=== PATIENT | male | born 2000 | race Caucasian/White ===

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

== ENCOUNTER → 2020-02-12 17:11 | Outpatient (CLI) | payer OTHER, SELFPAY ==
[2020-02-12 18:56] LABS: Basophils # 0.1 K/mm3 (0-0.2); Basophils % 2.1 % (0.1-2.0); Eosinophils % 0.5 % (0.1-12.0); Hematocrit 44.7 % (42.0-52.0); Hemoglobin 15.1 g/dL (14.1-18.0); Lymphocytes # 0.8 K/mm3 (0.7-4.5); Lymphocytes % 12.5 % (10-50); Mean Corpuscular HGB Conc 33.7 g/dL (31.8-35.4); Mean Corpuscular Hemoglobin 30.5 pg (27.0-31.2); Mean Corpuscular Volume 90.6 fl (80-94); Monocytes # 0.7 K/mm3 (0.1-1.0); Monocytes % 12.2 % (1.7-9.3); Neutrophils # 4.4 K/mm3 (1.8-7.8); Neutrophils % 72.7 % (37.0-80.0); Platelet Count 235 K/mm3 (142-424); Red Blood Count 4.94 M/mm3 (4.60-6.20); Red Cell Distribution Width 13.1 % (11.5-17.5)
== END ==
PROVIDERS: PCP Family Medicine; Visit Provider Family Medicine
DX: Z20.828 Contact with and (suspected) exposure to other viral communicable diseases (principal); U07.1 COVID-19
CPT/HCPCS: 36415; 85025; 87275; 87276; U0003

== ENCOUNTER 2020-09-15 17:36 | Emergency (ER) | payer OTHER, SELFPAY ==
[2020-09-15 18:44] VITALS: BP 165/99; PULSE 110; RESP 20; TEMP 36.9; O2SAT 98; BMI 39.8
--- NOTE | 2020-09-15 19:18 | HMH.EDUTC ---
[facility] Disposition Clinical Impression: Conjunctivitis, right eye Qualifiers: Conjunctivitis type: unspecified Qualified Code(s): H10.9 - Unspecified conjunctivitis Disposition: Home, Self-Care Condition on Discharge: Good Instructions: How to Instill Eye Drops, DI for Conjunctivitis Additional Instructions: Use the eye drops as directed. Strict hand washing in the house hold, because conjunctivitis is very contagious. Follow up with your regular doctor. GO TO THE ER FOR ANY WORSENING SYMPTOMS OR CONCERNS Follow up with your eye doctor as discussed. If you have worsening symptoms, please return and go through the ER. Prescriptions: Ibuprofen [Ibuprofen 800mg Tablet] 800 mg PO Q8HP PRN #30 tab PRN Reason: Moderate Pain Transmission Status: Received by [facility] Moxifloxacin HCl [Vigamox] 1 drp EYE-RIGHT TID 7 Days #1 bottle Transmission Status: Received by [facility] Referrals: Lavell Anaya MD [Primary Care Provider] - Forms: Work/School Release Time of Disposition: 19:47 Medical Decision Making - Medical Records Medical records reviewed: No: I reviewed the patient's medical records. - Juan Pablo Inquiry Pt receiving controlled substance: No Vital Signs: 09/15/20 18:44 09/15/20 19:51 Temperature 98.5 F 98.5 F Temperature Source Oral Pulse Rate 113 H Pulse Rate [Left] 110 H Respiratory Rate 20 18 Blood Pressure 161/99 H Blood Pressure [Right Arm] 165/99 H Blood Pressure Mean [Right Arm] 121 02 Sat by Pulse Oximetry 98 Medical Decision Narrative: He adamantly refused eye exam under wood's lamp with dye. [facility] HPI - General Stated complaint: r eye irritated Time Seen by Provider: 09/15/20 19:18 Mode of Arrival: Ambulatory Source of Information: Patient Limitations: No Limitations Description of Symptoms (Recalled from Triage Doc. by RN): pt states he scratched his R eye at work about three days ago. pt now is having purulent drainage. HEENT Symptoms (Recalled from RN notes): Yes (R eye irriatation and purulent drainage) Resp Symptoms (Recalled from RN notes): No Skin Symptoms (Recalled from RN notes): No MS Symptoms (Recalled from RN notes): No Functional Status (Recalled from RN notes): na - History of Present Illness Provider Complaint: He states that for the past 3 days he has had right eye irration. He assumed it was his allergies acting up, so he has been taking allergy medication and using an otc allergy eye drop in the eye. He states that today at work his coworker accidentily brushed across his face and right eye with some stickers or paper. He states that after that he began having worse eye irritation and redness. He denies that his vision has changed any. He denies eye pain, other than the irritated feeling and the feeling that bright lights make it more sensitive. - Related Data Previous Rx's Medication Instructions Recorded Azithromycin [Z-Sebas 250mg Tab*] 250 mg PO UD DOSE PK #6 tab 02/12/19 Fluticasone Propionate [Flonase 1 - 2 spr NS DAILY #1 bottle 02/12/19 50mcg nasal spray 16gm] methylPREDNISolone [Medrol 4mg 4 mg PO DIRECTED #21 tab 02/12/19 tab] Ibuprofen [Ibuprofen 800mg 800 mg PO Q8HP PRN #30 tab 09/15/20 Tablet] Moxifloxacin HCl [Vigamox] 1 drp EYE-RIGHT TID 7 Days #1 09/15/20 bottle Allergies Allergy/AdvReac Type Severity Reaction Status Date / Time Penicillins Allergy Verified 09/15/20 18:47 Sulfa (Sulfonamide Allergy Verified 09/15/20 18:47 Antibiotics) - Worker's Comp Is this a Worker's Comp case?: No [facility] History - Hepatitis A Screen Drug use history?: No High risk sexual behaviors?: No History of sexually transmitted infection?: No Currently employed?: No Childcare worker?: No Do you have indoor plumbing?: Yes Do you have electricity?: Yes Attestation statement:: This patient has been screened for Hepatitis A risk factors. I have revie
[2020-09-15 19:51] VITALS: BP 161/99; PULSE 113; RESP 18; TEMP 36.9
== END 2020-09-15 19:51 | disposition home or self-care (01) ==
PROVIDERS: Emergency Provider Nurse Practitioner Family; PCP Family Medicine
DX: H10.9 Unspecified conjunctivitis (principal)
CPT/HCPCS: 99202; G0463

== ENCOUNTER 2021-04-19 14:24 | Emergency (ER) | payer SELFPAY ==
[2021-04-19 14:26] VITALS: BP 123/66; PULSE 108; RESP 16; TEMP 37.4; O2SAT 98; BMI 33.9
[2021-04-19 14:47] LABS: Microscopic, Urine URINE MICROSCOPIC (MICROSCOPIC)
--- NOTE | 2021-04-19 14:50 | HMH.EDGENADL ---
ED Disposition Clinical Impression: Epigastric pain Disposition: Home, Self-Care Condition on Discharge: Good Referrals: Lavell nAaya MD [Primary Care Provider] - - Critical Care Critical Care Time: No Attestation: On , the high probability of a clinically significant, sudden or life threatening deterioration of the following system(s) required my full and direct attention, intervention and personal management. The time I documented below is in addition to time spent performing reported procedures but includes the following listed in this critical care notation. Medical Decision Making - Juan Pablo Inquiry Pt receiving controlled substance: No - Lab Data Lab Results 04/19/21 14:40: Urine Color Yellow, Urine Appearance Clear, Urine pH 6.0, Ur Specific [place] >= 1.030, Urine Protein Negative, Urine Glucose (UA) Negative, Urine Ketones Negative, Urine Blood Negative, Urine Nitrate Negative, Urine Bilirubin Negative, Urine Urobilinogen 0.2, Ur Leukocyte Esterase Negative, Urine RBC 3-5, Urine WBC 3-5, Ur Squamous Epith Cells 3-5, Urine Bacteria Trace 04/19/21 14:40: WBC 14.4 H, RBC 5.44, Hgb 16.8, Hct 51.2, MCV 94.1 H, MCH 30.8, MCHC 32.8, RDW 13.2, Plt Count 236, MPV 8.4, Neut % (Auto) 92.7 H, Lymph % (Auto) 2.0 L, Brooke % (Auto) 3.0, Eos % (Auto) 1.2, Baso % (Auto) 1.2, Neut # (Auto) 13.3 H, Lymph # (Auto) 0.3 L, Brooke # (Auto) 0.4, Eos # (Auto) 0.2, Baso # (Auto) 0.2 04/19/21 14:40: Sodium 137, Potassium 4.5, Chloride 102, Carbon Dioxide 26, Anion Gap 13.5, BUN 23 H, Creatinine 0.80, Estimated Creat Clear 234, Estimated GFR 122, Est GFR ( Amer) 148, Glucose 95, Calcium 8.8, Total Bilirubin 0.7, AST 29, ALT 37, Alkaline Phosphatase 87, Total Protein 7.6, Albumin 4.6, Globulin 3.0, Albumin/Globulin Ratio 1.5, Lipase 66 04/19/21 14:40: Lactate 1.2 Result diagrams: 04/19/21 14:40 04/19/21 14:40 Orders (Tests/Meds): ED MEDICATIONS Generic Name Dose Route Start Last Admin Trade Name Freq PRN Reason Stop Dose Admin Lactated Ringer's 1,000 mls @ 999 mls/hr 04/19/21 14:45 04/19/21 15:14 Lactated Ringer's 1000 Ml Bag IV 04/19/21 15:45 999 mls/hr .Q1H1M DEJUAN Administration Sodium Chloride 8 ml 04/19/21 14:56 Sodium Chloride 0.9% 10ml Vial IV 05/19/21 14:55 NEEDED PRN dilute pepcid Discontinued Medications Generic Name Dose Route Start Last Admin Trade Name Freq PRN Reason Stop Dose Admin Belladonna Alkaloids 60 ml 04/19/21 14:56 04/19/21 15:14 Gi Cocktail 60ml Udc PO 04/19/21 14:57 60 ml ONCE ONE Administration Famotidine 20 mg 04/19/21 14:56 04/19/21 15:15 Famotidine 20mg/2ml Vial IV 04/19/21 14:57 20 mg ONCE ONE Administration Ondansetron HCl 4 mg 04/19/21 14:37 04/19/21 15:14 Ondansetron 4mg/2ml Vial IV 04/19/21 14:38 4 mg ONCE ONE Administration ORDERS Category Date Time Status Complete Blood Count Auto Diff Stat Lab 04/19/21 14:40 Results Medical Decision Narrative: DDx includes but not limited to gastritis, gerd, gastroenteritis, peptic ulcer, pancreatitis. HDS, NAD, well appearing, no current abd pain in ED. mildly tachycardic on initial vitals, afebrile, on room air, normotensive. will obtain labs including cbc, cmp, lipase, lactate, and will give meds including 1 liter ivf bolus lr, po gi cocktail, iv famotidine. WBC 14.4k. H/H wnl. Lipase and lactate wnl. On reassessment, tolerating PO, remains well appearing, pain free. Offered to prescribe famotidine but patient states he can get it OTC and prefers no prescription. Advised to limit fatty food and caffeinated beverages in diet. Given ED return precautions. General Adult HPI - General Stated complaint: stomach pain, vomiting Time Seen by Provider: 04/19/21 14:45 - History of Present Illness HPI narrative: 21 yo male w/ hx childhood asthma, obesity, presents for evaluation of abdominal pain. Patient reports he has had intermittent episodes of sharp or burning epigastri
[2021-04-19 15:00] VITALS: BP 175/68; PULSE 68; RESP 16; O2SAT 95
[2021-04-19 15:03] LABS: Appearance,Urine CLEAR (Clear); Bilirubin,Urine Negative (Negative); Blood, Urine Negative (Negative); Color,Urine YELLOW (Yellow); Glucose,Urine (UA) Negative (Negative); Ketones,Urine Negative (Negative); Leukocyte Esterase,Urine Negative (Negative); Nitrate,Urine Negative (Negative); Protein,Urine Negative (Negative); Specific Gravity, Urine >= 1.030 (1.005-1.030); Urobilinogen,Urine 0.2 EU/dl (0.2)
[2021-04-19 15:22] LABS: Basophils # 0.2 K/mm3 (0-0.2); Basophils % 1.2 % (0.1-2.0); Eosinophils # 0.2 K/mm3 (0.0-0.4); Eosinophils % 1.2 % (0.1-12.0); Hematocrit 51.2 % (42.0-52.0); Hemoglobin 16.8 g/dL (14.1-18.0); Lymphocytes # 0.3 K/mm3 (0.7-4.5); Mean Corpuscular HGB Conc 32.8 g/dL (31.8-35.4); Mean Corpuscular Hemoglobin 30.8 pg (27.0-31.2); Mean Corpuscular Volume 94.1 fl (80-94); Mean Platelet Volume 8.4 fl (7.4-10.4); Monocytes # 0.4 K/mm3 (0.1-1.0); Neutrophils # 13.3 K/mm3 (1.8-7.8); Neutrophils % 92.7 % (37.0-80.0); Platelet Count 236 K/mm3 (142-424); Red Blood Count 5.44 M/mm3 (4.60-6.20); Red Cell Distribution Width 13.2 % (11.5-17.5); White Blood Count 14.4 K/mm3 (4.8-10.8)
[2021-04-19 15:23] LABS: Bacteria,Urine Trace /lpf
[2021-04-19 15:26] LABS: Alanine Aminotransferase 37 U/L (12-78); Albumin Level 4.6 g/dl (3.5-5.0); Albumin/Globulin Ratio 1.5 (1.1-1.8); Alkaline Phosphatase 87 U/L (38-126); Anion Gap 13.5 mEq/L (5-15); Aspartate Amino Transferase 29 U/L (17-59); Bilirubin,Total 0.7 mg/dl (0.2-1.3); Blood Urea Nitrogen 23 mg/dl (9-20); Calcium 8.8 mg/dl (8.4-10.2); Carbon Dioxide 26 mmol/L (22.0-30.0); Chloride 102 mmol/L (98-107); Creatinine Clearance Estimated 234 mL/min (50-200); Estimated Glomerular Filt Rate 122 ml/min (>60); GFR (African American) 148 ML/MIN (>60); Glucose 95 mg/dl (74-100); Lipase 66 U/L (23-300); MANUAL DIFFERENTIAL MANUAL DIFFERENTIAL (MANUAL DIFF); Potassium 4.5 mmoL/L (3.5-5.1); Sodium 137 mmol/L (136-145); Total Protein,Serum 7.6 g/dl (6.3-8.2)
--- NOTE | 2021-04-19 15:26 | PC.NURSE ---
patient is resting in bed. awaiting test results. nothing needed at this time. call light within reach.
[2021-04-19 15:27] LABS: Lactic Acid 1.2 mmol/L (0.7-2.1)
[2021-04-19 15:30] VITALS: BP 169/72; PULSE 65; RESP 16; O2SAT 95
[2021-04-19 15:50] LABS: Anisocytosis 1+; Hypochromasia 1+; Lymphocytes % 3 % (10-50); Microcytosis 1+; Monocytes % 10 % (2-9); Neutrophils % 87 % (42-76); Tear Drop Cells 1+; Total Cells Counted 100
[2021-04-19 15:51] LABS: Platelet Estimate Normal
[2021-04-19 15:57] VITALS: BP 180/76; PULSE 65; RESP 18; TEMP 37.2; O2SAT 95
[2021-04-19 17:04] VITALS: BP 165/72; PULSE 70; RESP 16; TEMP 37.2; O2SAT 95
== END 2021-04-19 17:06 | disposition home or self-care (01) ==
PROVIDERS: Emergency Provider Student in an Organized Health Care Education/Training Program; PCP Family Medicine
DX: R10.13 Epigastric pain (principal); R11.10 Vomiting, unspecified
CPT/HCPCS: 80053; 81001; 83605; 83690; 85007; 85025; 96365; 99284; J2405

== ENCOUNTER 2021-10-16 03:34 | Emergency (ER) | payer OTHER, SELFPAY ==
[2021-10-16 03:34] VITALS: BP 155/103; PULSE 84; RESP 18; TEMP 37.1; O2SAT 99; BMI 37.2
[2021-10-16 03:50] VITALS: BMI 37.2
--- NOTE | 2021-10-16 03:51 | XR_ITS ---
PROCEDURE INFORMATION: Exam: XR Chest Exam date and time: 10/16/2021 4:12 AM Age: 21 years old Clinical indication: Other: Dizziness; Additional info: Hypertension, dizziness TECHNIQUE: Imaging protocol: Radiologic exam of the chest. Views: 2 views. COMPARISON: CR XR SHOULDER LT MIN 2V 01/23/2019 11:04 PM FINDINGS: Lungs: No focal airspace disease. Pleural spaces: Unremarkable. No pleural effusion. No pneumothorax. Heart/Mediastinum: Cardiomediastinal silhouette is within normal limits. Bones/joints: Unremarkable. IMPRESSION: No acute cardiopulmonary abnormality.
--- NOTE | 2021-10-16 03:52 | CT_ITS ---
PROCEDURE INFORMATION: Exam: CT Head Without Contrast Exam date and time: 10/16/2021 4:06 AM Age: 21 years old Clinical indication: Dizziness TECHNIQUE: Imaging protocol: Computed tomography of the head without contrast. Radiation optimization: All CT scans at this facility use at least one of these dose optimization techniques: automated exposure control; mA and/or kV adjustment per patient size (includes targeted exams where dose is matched to clinical indication); or iterative reconstruction. COMPARISON: No relevant prior studies available. FINDINGS: Brain: Normal. No hemorrhage. Unremarkable white matter. No mass effect. Cerebral ventricles: No ventriculomegaly. Paranasal sinuses: Visualized sinuses are unremarkable. No fluid levels. Mastoid air cells: Visualized mastoid air cells are well aerated. Bones/joints: Unremarkable. No acute fracture. Soft tissues: Unremarkable. IMPRESSION: No acute intracranial abnormality.
--- NOTE | 2021-10-16 03:55 | ECG_ITS ---
APPROVED REPORT Exam: Resting ECG HR:80 bpm ECG Measurements Heart Rate 80 AXES TX 189 P 64 QRSd 111 QRS 61 QT 349 T 31 QTc 385 Conclusion SINUS RHYTHM MODERATE INTRAVENTRICULAR CONDUCTION DELAY [110+ ms QRS DURATION] BORDERLINE ECG UNCONFIRMED REPORT Electronically signed by : Quinton Mederos MD 10/18/2021 15:27:48
[2021-10-16 03:59] LABS: Basophils # 0.2 K/mm3 (0-0.2); Basophils % 1.2 % (0.1-2.0); Eosinophils # 0.1 K/mm3 (0.0-0.4); Eosinophils % 0.6 % (0.1-12.0); Hematocrit 46.9 % (42.0-52.0); Hemoglobin 15.8 g/dL (14.1-18.0); Lymphocytes # 1.8 K/mm3 (0.7-4.5); Lymphocytes % 13.7 % (10-50); Mean Corpuscular HGB Conc 33.7 g/dL (31.8-35.4); Mean Corpuscular Hemoglobin 30.8 pg (27.0-31.2); Mean Corpuscular Volume 91.2 fl (80-94); Mean Platelet Volume 8.3 fl (7.4-10.4); Monocytes # 0.7 K/mm3 (0.1-1.0); Monocytes % 5.6 % (1.7-9.3); Neutrophils # 10.2 K/mm3 (1.8-7.8); Neutrophils % 78.8 % (37.0-80.0); Platelet Count 267 K/mm3 (142-424); Red Blood Count 5.13 M/mm3 (4.60-6.20); Red Cell Distribution Width 13.1 % (11.5-17.5)
[2021-10-16 04:05] LABS: Alanine Aminotransferase 54 U/L (12-78); Albumin Level 4.7 g/dl (3.5-5.0); Albumin/Globulin Ratio 1.4 (1.1-1.8); Alkaline Phosphatase 115 U/L (38-126); Anion Gap 12.9 mEq/L (5-15); Aspartate Amino Transferase 36 U/L (17-59); Bilirubin,Total 0.3 mg/dl (0.2-1.3); Blood Urea Nitrogen 15 mg/dl (9-20); Calcium 9.1 mg/dl (8.4-10.2); Carbon Dioxide 31 mmol/L (22.0-30.0); Chloride 101 mmol/L (98-107); Creatinine Clearance Estimated 242 mL/min (50-200); Estimated Glomerular Filt Rate 107 ml/min (>60); GFR (African American) 129 ML/MIN (>60); Globulin 3.3 g/dL (1.3-3.2); Glucose 81 mg/dl (74-100); Potassium 3.9 mmoL/L (3.5-5.1); Sodium 141 mmol/L (136-145)
[2021-10-16 04:10] LABS: C-Reactive Protein 12.5 mg/L (0-4)
--- NOTE | 2021-10-16 04:19 | HMH.EDDIZZ ---
Discharge Plan Disposition Patient Disposition: Home, Self-Care Chief Complaint: Dizziness Prescriptions Prescriptions: No Action azithromycin 250 MG tablet 250 mg PO UD DOSE PK Qty: 6 0RF Rx Instructions: Take two (2) tablets today, then one (1) tablet days #2 thru #5 methylprednisolone 4 MG tablet 4 mg PO DIRECTED Qty: 21 0RF Rx Instructions: Take as directed on package instructions fluticasone propionate 120 SPR/BOT bottle 1 - 2 spr NS DAILY Qty: 1 0RF moxifloxacin 3 ML drops 1 drp EYE-RIGHT TID 7 Days Qty: 1 0RF ibuprofen 800 MG tablet 800 mg PO Q8HP PRN (Reason: Moderate Pain) Qty: 30 0RF Referrals Follow up/Referrals: Lavell Anaya MD [Primary Care Provider] - See instructions Clinical Impressions Clinical Impression: Dizziness Instructions Patient Instructions: Dizziness, Nonvertigo Discharge ED Provider: Joel Banuelos HPI General Chief Complaint: Dizziness Stated Complaint: Dizziness Time Seen by Provider: 10/16/21 04:19 Mode of Arrival: EMS Source of Information: Patient, Parent(s) and Medical Record Limitations: No Limitations Description of Symptoms (Recalled from ER Triage Doc. by RN): pt stated to have had high blood pressure at work was sent home.the pt stated the job is very stressful pt stated he got dizzy on the way home so he called [address] History of Present Illness HPI Narrative: has dizzyness and elevated bp but no focal neuro sx - no fever or rash and no trauma - reports usually no bp issues - no chest pain- no viral illness complaint: dizziness Onset (ago): hour(s) Timing: sudden onset Description: lightheadedness History of similar episodes: No History of trauma: No Severity: moderate Relieving factors: remaining still Exacerbating factors: movement Associated symptoms: denies other symptoms Related Data Previous Rx's Medication Instructions Recorded azithromycin 250 mg tablet 250 mg PO UD DOSE PK #6 tabs 02/12/19 fluticasone propionate 50 1 - 2 spr NS DAILY ##1 02/12/19 mcg/actuation nasal spray,suspension methylprednisolone 4 mg tablet 4 mg PO DIRECTED #21 tabs 02/12/19 ibuprofen 800 mg tablet 800 mg PO Q8HP PRN Moderate Pain 09/15/20 #30 tabs moxifloxacin 0.5 % eye drops 1 drp EYE-RIGHT TID 7 days ##1 09/15/20 Allergies Allergy/AdvReac Type Severity Reaction Status Date / Time Penicillins Allergy Verified 09/15/20 18:47 Sulfa (Sulfonamide Allergy Verified 09/15/20 18:47 Antibiotics) PFSH PFSH Social History Smoking Status: Current every day smoker alcohol intake: never substance use type: denies use current occupational status: student Travel in the last 8 weeks: None household members: family housing: house ROS Obtained: Yes All systems reviewed & no additional complaints except as documented Physical Exam General General appearance: alert and obese Head Head exam: normocephalic Eye Eye exam: Present PERRL and EOMI; Absent nystagmus ENT ENT exam: Present mucous membranes moist Neck Neck exam: Present trachea midline Respiratory Respiratory exam: Present normal lung sounds bilaterally Cardiovascular Cardiovascular exam: Present regular rate; Absent systolic murmur Abdominal Exam Abdominal exam: Present soft Extremities Exam Extremities exam: Present full ROM Neurological Exam Neurological exam: Present alert, oriented X3 and CN II-XII intact; Absent motor sensory deficit Psychiatric Psychiatric exam: Present normal affect Skin Skin exam: Absent rash Medical Decision Making Medical Records Medical records reviewed: Yes I reviewed the patient's medical records. Juan Pablo Inquiry Pt receiving controlled substance: No Vital Signs: 10/16/21 03:34 10/16/21 04:31 10/16/21 05:01 Temperature 98.8 F Temperature Source Oral Pulse Rate 83 72 Pulse Rate [Left] 84 Respiratory Rate 18 Blood Pressure 148/90 H 130/70
[2021-10-16 04:21] LABS: Troponin I < 0.01 ng/ml (0.00-0.034)
[2021-10-16 04:24] LABS: Procalcitonin < 0.030 ng/mL (0.0-2.0)
[2021-10-16 04:31] VITALS: BP 148/90; PULSE 83; O2SAT 99
[2021-10-16 04:46] LABS: Erythrocyte Sedimentation Rate 13 mm/hr (0-15)
[2021-10-16 05:01] VITALS: BP 130/70; PULSE 72; O2SAT 99
[2021-10-16 05:31] VITALS: BP 128/80; PULSE 83; O2SAT 99
--- NOTE | 2021-10-16 05:59 | PC.NURSE ---
Pt updated that we are waiting on scan results. Pt agreeable at this time. No needs or complaints voiced.
--- NOTE | 2021-10-16 06:26 | PC.NURSE ---
at speaking with pt and family about results
[2021-10-16 06:31] VITALS: BP 116/62; PULSE 71; RESP 16; TEMP 36.6; O2SAT 98
== END 2021-10-16 06:40 | disposition home or self-care (01) ==
PROVIDERS: Emergency Provider Emergency Medicine; PCP Family Medicine
DX: R42 Dizziness and giddiness (principal); R11.0 Nausea; F17.200 Nicotine dependence, unspecified, uncomplicated; Z79.1 Long term (current) use of non-steroidal anti-inflammatories (NSAID); Z79.51 Long term (current) use of inhaled steroids; Z79.52 Long term (current) use of systemic steroids; Z79.899 Other long term (current) drug therapy; Z88.0 Allergy status to penicillin; Z88.2 Allergy status to sulfonamides
CPT/HCPCS: 70450; 71046; 80053; 84145; 84484; 85025; 85651; 86140; 93005; 96360; 99285

== ENCOUNTER 2021-11-12 10:26 | Emergency (ER) | payer OTHER, SELFPAY ==
[2021-11-12 10:40] VITALS: BP 149/87; PULSE 80; RESP 18; TEMP 36.7; O2SAT 99; BMI 40.6
--- NOTE | 2021-11-12 10:49 | EXP.UTC ---
Discharge Plan Disposition Patient Disposition: Home, Self-Care Condition: Good Prescriptions Prescriptions: New ondansetron HCl 4 mg tablet 4 mg PO Q8H PRN (Reason: vomiting) 0 Days Qty: 10 0RF No Action azithromycin 250 MG tablet 250 mg PO UD DOSE PK Qty: 6 0RF Rx Instructions: Take two (2) tablets today, then one (1) tablet days #2 thru #5 methylprednisolone 4 MG tablet 4 mg PO DIRECTED Qty: 21 0RF Rx Instructions: Take as directed on package instructions fluticasone propionate 120 SPR/BOT bottle 1 - 2 spr NS DAILY Qty: 1 0RF Referrals Follow up/Referrals: Lavell Anaya MD [Primary Care Provider] - See instructions Activity Restrictions/Add. Instructions Additional Instructions/Restrictions: Drink extra fluids with and between meals. If you have difficulty drinking, try very small amounts of water or suck on ice chips. ? Avoid fruit juices, as these do not replace minerals and can actually increase diarrhea. ? Children and adults can use sports drinks to replenish electrolytes. Younger children and infants should use products formulated for children, like oral rehydration solutions. ? Eat food in small amounts and let your stomach recover. ? Get lots of rest. You may feel tired or weak. ? No greasy or fried foods for the next 24-48 hours BRAT diet Bananas Rice Apples and [place] ? Make sure to drink plenty of liquids ? Return if needed ? Straight to ER if any life threatening symptoms ? Zofran as prescribed ? You was given an outpatient order for diarrhea panel, please collect specimen and bring back to outpatient lab then call back to the [facility] or follow up with family doctor for results ? Follow up with family doctor in the next 48-72 hours if no improvement or any worsening of symptoms Clinical Impressions Clinical Impression: Gastroenteritis Stand Alone Forms Stand Alone Forms: Work/School Release Instructions Patient Instructions: DI for Viral Gastroenteritis -- Adult Discharge ED Provider: Ksenia Ma [facility] [place] HPI General Stated complaint: Vomitting Time Seen by Provider: 11/12/21 10:49 History of Present Illness Provider Complaint: Patient states that he and some friends eat out last night and they was all sick this morning with N/V/D State that he is feeling better now but work made him come in and get checked out and get a Doctors note Related Data Previous Rx's Medication Instructions Recorded ondansetron HCl 4 mg tablet 4 mg PO Q8H PRN vomiting 0 days 11/12/21 #10 tabs Allergies Allergy/AdvReac Type Severity Reaction Status Date / Time Penicillins Allergy Verified 09/15/20 18:47 Sulfa (Sulfonamide Allergy Verified 09/15/20 18:47 Antibiotics) [facility] 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 (Updated 11/12/21 @ 10:54 by Ksenia Ma [employer]) Asthma Surgical History (Updated 11/12/21 @ 10:53 by Meghan Yao RN) History of tonsillectomy Social History Smoking Status: Current every day smoker alcohol intake: never substance use type: denies use current occupational status: student and other Travel in the last 8 weeks: None household members: family housing: house ROS Obtained: Yes All systems reviewed & no additional complaints except as documented and Yes Systems reviewed as appropriate & no additional complaints except as documented Constitutional Constitutional: Reports system reviewed and no additional complaints, except as documented and Reports as per HPI ENT Ears, Nose, Mouth, and Throat: Reports system reviewed and no additional complaints, except as documented and Reports as per HPI Cardiovascular Cardiovascular: Reports system reviewed and no additional complaints, except as documented and Reports as per HPI Respiratory Respiratory: Reports system reviewed and no additional complaints, except as documented and Reports as per
[2021-11-12 10:59] VITALS: BP 149/87; PULSE 80; RESP 18; TEMP 36.7; O2SAT 99
== END 2021-11-12 11:00 | disposition home or self-care (01) ==
PROVIDERS: Emergency Provider Nurse Practitioner; PCP Family Medicine
DX: K52.9 Noninfective gastroenteritis and colitis, unspecified (principal)
CPT/HCPCS: 99212; G0463

== ENCOUNTER 2022-03-28 11:12 | Emergency (ER) | payer OTHER, SELFPAY ==
[2022-03-28 11:45] VITALS: BP 146/85; PULSE 74; RESP 18; TEMP 36.7; O2SAT 98; BMI 44.3
--- NOTE | 2022-03-28 12:17 | EXP.UTC ---
Discharge Plan Disposition Patient Disposition: Home, Self-Care Condition: Good Prescriptions Prescriptions: New ondansetron 4 mg tablet,disintegrating 4 mg PO Q8H PRN (Reason: nausea and vomiting) Qty: 10 0RF No Action ondansetron HCl 4 mg tablet 4 mg PO Q8H PRN (Reason: vomiting) 0 Days Qty: 10 0RF Referrals Follow up/Referrals: Lavell Anaya MD [Primary Care Provider] - See instructions Activity Restrictions/Add. Instructions Additional Instructions/Restrictions: Drink extra fluids with and between meals. If you have difficulty drinking, try very small amounts of water or suck on ice chips. ? Avoid fruit juices, as these do not replace minerals and can actually increase diarrhea. ? Children and adults can use sports drinks to replenish electrolytes. Younger children and infants should use products formulated for children, like oral rehydration solutions. ? Eat food in small amounts and let your stomach recover. ? Get lots of rest. You may feel tired or weak. ? No greasy or fried foods for the next 24-48 hours BRAT diet Bananas Rice Apples and [place] ? Make sure to drink plenty of liquids ? Return if needed ? Straight to ER if any life threatening symptoms ? Zofran as prescribed ? You was given an outpatient order for diarrhea panel, please collect specimen and bring back to outpatient lab then call back to the [facility] or follow up with family doctor for results ? Follow up with family doctor in the next 48-72 hours if no improvement or any worsening of symptoms Clinical Impressions Clinical Impression: Nausea vomiting and diarrhea Stand Alone Forms Stand Alone Forms: Work/School Release Instructions Patient Instructions: Nausea and Vomiting-Adult, Diarrhea Discharge ED Provider: Ksenia Ma [facility] [place] HPI General Stated complaint: Vomiting diarrhea Mode of Arrival: Ambulatory Source of Information: Patient Limitations: No Limitations Time Seen by Provider: 03/28/22 12:17 Description of Symptoms (Recalled from Triage Doc. by RN): PATIENT C/O VOMITING AND DIARRHEA SINCE TUESDAY HEENT Symptoms (Recalled from RN notes): No Resp Symptoms (Recalled from RN notes): No Skin Symptoms (Recalled from RN notes): No MS Symptoms (Recalled from RN notes): No Functional Status (Recalled from RN notes): WNL History of Present Illness Provider Complaint: Patient states that he started on Tuesday night with Vomiting and Diarrhea and they sent him home from work States that it was a little better yesterday and he went to work eat and started again with the Vomiting and Diarrhea States that today he has continued to have N/V/D so he came in to see if he could get something to help Related Data Previous Rx's Medication Instructions Recorded ondansetron HCl 4 mg tablet 4 mg PO Q8H PRN vomiting 0 days 11/12/21 #10 tabs ondansetron 4 mg disintegrating 4 mg PO Q8H PRN nausea and 03/28/22 tablet vomiting #10 tabs Allergies Allergy/AdvReac Type Severity Reaction Status Date / Time Penicillins Allergy Verified 09/15/20 18:47 Sulfa (Sulfonamide Allergy Verified 09/15/20 18:47 Antibiotics) Worker's Comp Is this a Worker's Comp case?: No [facility] Disclaimer: The information contained in this section may have been updated after the patient was seen, as this information can be updated by other users. 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 (Updated 03/28/22 @ 12:25 by Ksenia Ma APRN) Asthma Surgical History History of tonsillectomy Social History (Updated 03/28/22 @ 11:56 by Meghan aYo RN) Smoking Status: Current every day smoker alcohol intake: never substance use type: denies use current occupational status: student and other Travel in the last 8 weeks: None household members: family housing: house ROS Obtained: Yes All systems reviewed &
[2022-03-28 12:49] VITALS: BP 146/85; PULSE 74; RESP 18; TEMP 36.7; O2SAT 98
== END 2022-03-28 12:52 | disposition home or self-care (01) ==
PROVIDERS: Emergency Provider Nurse Practitioner; PCP Family Medicine
DX: R11.2 Nausea with vomiting, unspecified (principal); R19.7 Diarrhea, unspecified
CPT/HCPCS: 99212; 99213; G0463

== ENCOUNTER 2022-04-24 15:00 | Emergency (ER) | payer OTHER, SELFPAY ==
[2022-04-24 15:35] VITALS: BP 163/91; PULSE 89; RESP 21; TEMP 37.2; O2SAT 99; BMI 37.3
--- NOTE | 2022-04-24 16:05 | EXP.UTC ---
Discharge Plan Disposition Patient Disposition: Home, Self-Care Condition: Good Referrals Follow up/Referrals: Lavell Anaya MD [Primary Care Provider] - See instructions Activity Restrictions/Add. Instructions Additional Instructions/Restrictions: No sign of a bacterial infection. Likely viral. Viruses can take 7-14 days to run their course. Nasal saline and bulb syringe or nose [place] to remove nasal drainage to help with nasal congestion. Hard to eat, drink, sleep with nasal congestion so important to keep this cleaned out. Monitor temp. Tylenol or Motrin as needed for pain or fever Encourage fluids, water, Gatorade, Powerade, Pedialyte if infant/toddler/child Warm salt water gargles Warm fluids Sore throat lozenges Sleep elevated Humidifier/vaporizer Follow-up immediately for new or worsening symptoms or no noticeable improvement over the next 48-72 hours. Clinical Impressions Clinical Impression: URI (upper respiratory infection) Stand Alone Forms Stand Alone Forms: Work/School Release Instructions Patient Instructions: DI for Viral Upper Respiratory Infection -- Adult Discharge ED Provider: Sania ([facility])[place] [facility] [place] General Stated complaint: Congestion,Sore throat,Headache Mode of Arrival: Ambulatory Source of Information: Patient Limitations: No Limitations Time Seen by Provider: 04/24/22 16:05 Description of Symptoms (Recalled from Triage Doc. by RN): PATIENT C/O NASAL CONGESTION, HEADACHE, AND SINUS PRESSURE THAT STARTED AFTER WORKING IN THE RAIN THIS WEEK HEENT Symptoms (Recalled from RN notes): Yes Resp Symptoms (Recalled from RN notes): No Skin Symptoms (Recalled from RN notes): No MS Symptoms (Recalled from RN notes): No Functional Status (Recalled from RN notes): WNL History of Present Illness Provider Complaint: 22 yr old male presents for clear sinus drainage, runny nose, sore throat and blackmon for 2 days Related Data Allergies Allergy/AdvReac Type Severity Reaction Status Date / Time Penicillins Allergy Verified 09/15/20 18:47 Sulfa (Sulfonamide Allergy Verified 09/15/20 18:47 Antibiotics) Worker's Comp Is this a Worker's Comp case?: No [facility] Disclaimer: The information contained in this section may have been updated after the patient was seen, as this information can be updated by other users. 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) Smoking Status: Current every day smoker alcohol intake: never substance use type: denies use current occupational status: student and other Travel in the last 8 weeks: None household members: family housing: house ROS Obtained: Yes All systems reviewed & no additional complaints except as documented Constitutional Constitutional: Reports system reviewed and no additional complaints, except as documented, Reports as per HPI and Reports headache(s) Eyes Eyes: Reports system reviewed and no additional complaints, except as documented and Reports as per HPI ENT Ears, Nose, Mouth, and Throat: Reports system reviewed and no additional complaints, except as documented, Reports as per HPI, Reports headache(s), Reports nasal congestion, Reports nasal discharge, Reports post nasal drip, Reports sinus pressure and Reports sore throat Cardiovascular Cardiovascular: Reports system reviewed and no additional complaints, except as documented and Reports as per HPI Respiratory Respiratory: Reports system reviewed and no additional complaints, except as documented and Reports as per HPI Musculoskeletal Musculoskeletal: Reports system reviewed and no additional complaints, except as documented Integumentary/Breasts Skin/Breast: Reports system reviewed and no additional complaints, except as documented Neuro
[2022-04-24 16:16] VITALS: BP 163/91; PULSE 89; RESP 21; TEMP 37.2; O2SAT 99
== END 2022-04-24 16:19 | disposition home or self-care (01) ==
PROVIDERS: Emergency Provider Nurse Practitioner Family; PCP Family Medicine
DX: J06.9 Acute upper respiratory infection, unspecified (principal); R51.9 Headache, unspecified; F17.200 Nicotine dependence, unspecified, uncomplicated; B34.9 Viral infection, unspecified
CPT/HCPCS: 99212; G0463

== ENCOUNTER 2023-05-02 20:03 | Emergency (ER) | payer SELFPAY ==
[2023-05-02 22:56] VITALS: BP 149/91; PULSE 94; RESP 16; TEMP 37; O2SAT 100; BMI 36.7
[2023-05-02 23:05] VITALS: BP 150/91; PULSE 89; RESP 16; TEMP 37; O2SAT 99
--- NOTE | 2023-05-02 23:09 | HMH.EDGENADL ---
Discharge Plan Disposition Patient Disposition: Home, Self-Care Referrals Follow up/Referrals: Lavell Anaya MD [Primary Care Provider] - See instructions Activity Restrictions/Add. Instructions Additional Instructions/Restrictions: Please follow-up with your primary care provider. Please return to the emergency department if you develop any new or worsening symptoms or become concerned for your health. Please use mineral oil as discussed. Avoid Q-tips. Clinical Impressions Clinical Impression: Hearing loss secondary to cerumen impaction Qualifiers: Laterality: left Qualified Code(s): H61.22 - Impacted cerumen, left ear Stand Alone Forms Stand Alone Forms: Work/School Release Discharge ED Provider: Moustapha Lan General Adult HPI General Chief complaint: Ear Stated complaint: Difficulty hearing Left ear Time Seen by Provider: 05/02/23 22:46 Mode of Arrival: Family Vehicle Source of Information: Patient Limitations: No Limitations Description of Symptoms (Recalled from ER Triage Doc. by RN): 23 yo old male bilat ear pain. complains of congestion and ear fullness . History of Present Illness HPI narrative: 23-year-old male presents with left ear hearing loss. He reports that he was having the same issue in his right ear but it got better. He thinks he has a lot of earwax buildup. He has been using peroxide with some improvement but reports he is still having trouble hearing in the left ear. He denies significant pain. Related Data Allergies Allergy/AdvReac Type Severity Reaction Status Date / Time Penicillins Allergy Verified 09/15/20 18:47 Sulfa (Sulfonamide Allergy Verified 09/15/20 18:47 Antibiotics) [facility] Disclaimer: The information contained in this section may have been updated after the patient was seen, as this information can be updated by other users. 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 (Reviewed 04/24/22 @ 16:09 by Nataly Lui ([facility] [[email or web address]]), MEDICAL LAB SPECIALIST) Asthma Surgical History (Reviewed 04/24/22 @ 16:09 by Nataly Lui ([facility] [[email or web address]]), MEDICAL LAB SPECIALIST) History of tonsillectomy Social History (Reviewed 04/24/22 @ 16:09 by Nataly Lui ([facility] [[email or web address] MEDICAL LAB SPECIALIST) Smoking Status: Unknown if ever smoked alcohol intake: never substance use type: denies use current occupational status: student and other Travel in the last 8 weeks: None household members: family housing: house ROS Obtained: Yes All systems reviewed & no additional complaints except as documented Physical Exam General General appearance: alert and in no apparent distress Head Head exam: atraumatic and normocephalic Eye Eye exam: Present normal appearance, PERRL and EOMI ENT ENT exam: Present normal oropharynx, normal external ear exam and other (Left TM completely occluded by cerumen, right TM partially occluded by cerumen, no evidence of acute otitis) Neck Neck exam: Present normal inspection and full ROM Chest Chest inspection: Present normal inspection and symmetric chest wall rise; Absent tenderness Respiratory Respiratory exam: Present normal lung sounds bilaterally; Absent respiratory distress Cardiovascular Cardiovascular exam: Present regular rate and normal rhythm Abdominal Exam Abdominal exam: Present soft; Absent distention, tenderness or guarding Extremities Exam Extremities exam: Present normal inspection; Absent edema or joint swelling Back Exam Back exam: Present normal inspection; Absent tenderness Neurological Exam Neurological exam: Present alert and oriented X3; Absent motor sensory deficit Psychiatric Psychiatric exam: Present normal affect and normal mood Skin Skin exam: Present warm, dry and normal color Lymphatic Lymphatic Findings: no adenopathy Medical Decision Making Medical Records Medical records reviewed: Yes I reviewed the patient's medical records. Juan Pablo Inquiry Pt receiving controlled substance: No Juan Pablo was queried for this patient: No Vital Signs: 05/02/23 22:56 05/02/23 23:05 Temperature 98.6 F 98.6 F Temperature Source Oral Oral Pulse Rate 89 Pulse Rate [Right Brachial] 94 H Respiratory Rate 16 16 Blood Pressure 150/91 H Blood Pressure [Right Arm] 149/91 H Blood Pressure Mean [Right Arm] 110 Blood Pressure Source Automatic Cuff Blood Pressure Source [Right Arm] Automatic Cuff Blood Pressure Position Sitting Blood Pressure Position [Right Arm] Sitting 02 Sat by Pulse Oximetry 100 Oxygen Delivery Method Room Air Room Air Lab Data Lab results reviewed: Yes I reviewed the patient's lab results. Medical Decision Narrative: 23-year-old male without significant past medical history presents with left ear hearing loss.. History was obtained interactive discussion with patient. On arrival, patient is [afebrile, hemodynamically stable, satting appropriately, alert, oriented x4, GCS 15], moving all extremities spontaneously. Full physical exam performed and significant for left TM occluded by cerumen, right TM partially occluded by cerumen Differential includes but is not limited to cerumen impaction, TM perforation, otitis media, otitis externa. The patient's left ear was irrigated by me at bedside utilizing a 16-gauge catheter and 10 mL syringes, total of 50 mL of irrigation with normal saline performed. Given patient history, exam and workup, patient's presentation most likely represents left cerumen impaction. He was given instructions regarding symptomatic care at home including using mineral oil 4 times daily. Recommended using in both ears until complete symptomatic resolution. Patient discharged in stable condition.. Procedures Risk/Benefits of Procedure(s) Were Explained: Yes Ear Wax Removal Left Ear: Results: Re-examined: some cerumen remains TM Examination: TM(s) intact, normal appearance Ear Canal Exam: atraumatic Patient Tolerated Procedure: well Complications: vertigo/dizziness Technique: ear canal irrigated Critical Care Critical Care Time Critical Care Time: No
== END 2023-05-02 23:13 | disposition home or self-care (01) ==
PROVIDERS: Emergency Provider Emergency Medicine; PCP Family Medicine
DX: H61.22 Impacted cerumen, left ear (principal)
CPT/HCPCS: 69210; 99283

== ENCOUNTER 2023-07-03 22:36 | Emergency (ER) | payer SELFPAY ==
[2023-07-03 22:37] VITALS: BP 152/82; PULSE 105; RESP 16; TEMP 37.2; O2SAT 98; BMI 41.5
--- NOTE | 2023-07-03 22:38 | XR_ITS ---
PROCEDURE INFORMATION: Exam: XR Chest Exam date and time: 07/03/2023 10:48 PM Age: 23 years old Clinical indication: Pain; Chest pressure; Additional info: Dyspnea TECHNIQUE: Imaging protocol: Radiologic exam of the chest. Views: 1 view. COMPARISON: CR XR CHEST 2V 10/16/2021 04:12 FINDINGS: Lungs: Unremarkable. No consolidation. Pleural spaces: Unremarkable. No pleural effusion. No pneumothorax. Heart/Mediastinum: Unremarkable. No cardiomegaly. Bones/joints: Unremarkable. IMPRESSION: No acute findings.
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
--- NOTE | 2023-07-03 22:40 | ECG_ITS ---
APPROVED REPORT Exam: Resting ECG HR:94 bpm ECG Measurements Heart Rate 94 AXES UT 189 P 60 QRSd 106 QRS 78 QT 332 T -7 QTc 383 Conclusion SINUS RHYTHM NONSPECIFIC ST & T-WAVE ABNORMALITY ABNORMAL ECG UNCONFIRMED REPORT Electronically signed by : Gian Juarez, 07/04/2023 23:14:26
[2023-07-03 23:01] VITALS: BP 131/76; PULSE 96; O2SAT 98
[2023-07-03 23:01] LABS: Basophils # 0.1 K/mm3 (0-0.2); Basophils % 0.9 % (0.1-2.0); Eosinophils # 0.3 K/mm3 (0.0-0.4); Eosinophils % 2.5 % (0.1-12.0); Hematocrit 43.9 % (42.0-52.0); Hemoglobin 14.2 g/dL (14.1-18.0); Lymphocytes # 2.2 K/mm3 (0.7-4.5); Lymphocytes % 21.5 % (10-50); Mean Corpuscular HGB Conc 32.4 g/dL (31.8-35.4); Mean Corpuscular Hemoglobin 29.8 pg (27.0-31.2); Mean Platelet Volume 8.2 fl (7.4-10.4); Monocytes # 0.6 K/mm3 (0.1-1.0); Monocytes % 5.8 % (1.7-9.3); Neutrophils # 7.1 K/mm3 (1.8-7.8); Neutrophils % 69.3 % (37.0-80.0); Platelet Count 239 K/mm3 (142-424); Red Blood Count 4.78 M/mm3 (4.60-6.20); Red Cell Distribution Width 13.6 % (11.5-17.5); White Blood Count 10.2 K/mm3 (4.8-10.8)
[2023-07-03 23:05] LABS: Chloride 102 mmol/L (98-107); Potassium 3.8 mmoL/L (3.5-5.1); Sodium 139 mmol/L (136-145)
[2023-07-03 23:08] LABS: Alanine Aminotransferase 34 U/L (12-78); Albumin Level 4.2 g/dl (3.5-5.0); Albumin/Globulin Ratio 1.2 (1.1-1.8); Alkaline Phosphatase 95 U/L (38-126); Anion Gap 12.8 mEq/L (5-15); Aspartate Amino Transferase 32 U/L (17-59); Bilirubin,Total 0.2 mg/dl (0.2-1.3); Blood Urea Nitrogen 14 mg/dl (9-20); Calcium 9.3 mg/dl (8.4-10.2); Carbon Dioxide 28 mmol/L (22.0-30.0); Creatinine Clearance Estimated 144 mL/min (50-200); Estimated Glomerular Filt Rate 105 ml/min (>60); GFR (African American) 127 ML/MIN (>60); Globulin 3.4 g/dL (1.3-3.2); Glucose 115 mg/dl (74-100); Total Protein,Serum 7.6 g/dl (6.3-8.2)
[2023-07-03 23:15] LABS: Ethyl Alcohol < 10 mg/dl (0-10)
[2023-07-03 23:25] LABS: Troponin I < 0.01 ng/ml (0.00-0.034)
[2023-07-03 23:31] VITALS: BP 115/72; PULSE 82; O2SAT 97
[2023-07-04] VITALS: BP 125/76; PULSE 76; O2SAT 97
[2023-07-04 00:31] VITALS: BP 141/76; PULSE 82; O2SAT 97
[2023-07-04 01:00] VITALS: BP 126/92; PULSE 76; O2SAT 98
[2023-07-04 01:31] VITALS: BP 124/72; PULSE 75; O2SAT 99
--- NOTE | 2023-07-04 01:31 | PC.NURSE ---
trop collected and sent to lab at this time.
[2023-07-04 02:18] LABS: Troponin I < 0.01 ng/ml (0.00-0.034)
[2023-07-04 02:28] VITALS: BP 126/77; PULSE 74; RESP 16; TEMP 36.6; O2SAT 99
== END 2023-07-04 02:30 | disposition home or self-care (01) ==
PROVIDERS: Student in an Organized Health Care Education/Training Program; Emergency Provider Emergency Medicine; PCP Family Medicine
DX: R07.9 Chest pain, unspecified (principal); F10.90 Alcohol use, unspecified, uncomplicated; F17.210 Nicotine dependence, cigarettes, uncomplicated
CPT/HCPCS: 71045; 80053; 84484; 85025; 93005; 99284

== ENCOUNTER 2024-01-17 14:33 | Emergency (ER) | payer SELFPAY ==
--- NOTE | 2024-01-17 14:54 | EXP.UTC ---
Discharge Plan Disposition Patient Disposition: Home, Self-Care Condition: Good Prescriptions Prescriptions: New azithromycin [Zithromax] 250 mg tablet 250 mg PO UD DOSE PK Qty: 6 0RF Rx Instructions: Take two (2) tablets today, then one (1) tablet days #2 thru #5 methylprednisolone 4 mg Tablets,Dose Pack 4 mg PO DIRECTED 6 Days Qty: 21 0RF Rx Instructions: Take 1 pack as directed for 6 days [id number] [Bromfed DM] 2-30-10 mg/5 mL Syrup 5 ml PO Q6H PRN (Reason: Cough) Qty: 240 0RF Referrals Follow up/Referrals: Lavell Anaya MD [Primary Care Provider] - See instructions Activity Restrictions/Add. Instructions Additional Instructions/Restrictions: Drink plenty of fluids. Take tylenol or ibuprofen for pain or fever. Take the medications as directed. Follow up with your regular doctor. GO TO THE ER FOR ANY WORSENING SYMPTOMS Clinical Impressions Clinical Impression: Sinusitis Stand Alone Forms Stand Alone Forms: Work/School Release Instructions Patient Instructions: Sinusitis, DI for Sinusitis Print Language Print Language: Spanish Discharge ED Provider: Gian Diamond [facility] HPI General Stated complaint: head congestion Time Seen by Provider: 01/17/24 14:54 Related Data Previous Rx's ?Medication ?Instructions ?Recorded azithromycin 250 mg tablet 250 mg PO UD DOSE PK #6 tabs 01/17/24 (Zithromax) yaklynqpdmalxuv-[id number]-JA 5 ml PO Q6H PRN Cough #240 mL 01/17/24 2 mg-30 mg-10 mg/5 mL oral syrup (Bromfed DM) methylprednisolone 4 mg tablets in 4 mg PO DIRECTED 6 days #21 tabs 01/17/24 a dose pack Allergies Allergy/AdvReac Type Severity Reaction Status Date / Time Penicillins Allergy Verified 09/15/20 18:47 Sulfa (Sulfonamide Allergy Verified 09/15/20 18:47 Antibiotics) [facility] Disclaimer: The information contained in this section may have been updated after the patient was seen, as this information can be updated by other users. 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) Smoking Status: Current every day smoker alcohol intake: never substance use type: denies use current occupational status: student and other Travel in the last 8 weeks: None household members: family housing: house ROS Obtained: Yes All systems reviewed & no additional complaints except as documented Constitutional Constitutional: Reports poor appetite Eyes Eyes: Reports system reviewed and no additional complaints, except as documented ENT Ears, Nose, Mouth, and Throat: Reports as per HPI Cardiovascular Cardiovascular: Reports system reviewed and no additional complaints, except as documented and Denies chest pain Respiratory Respiratory: Denies shortness of breath, Denies chest congestion, Reports cough, Denies stridor and Denies wheezing Gastrointestinal Gastrointestingal: Reports system reviewed and no additional complaints, except as documented; Denies abdominal pain, diarrhea or vomiting Musculoskeletal Musculoskeletal: Reports system reviewed and no additional complaints, except as documented and Denies arthralgias Integumentary/Breasts Skin/Breast: Reports system reviewed and no additional complaints, except as documented and Denies rash Neurologic Neurologic: Denies paresthesias Allergic/Immunologic Allergic/Immunologic: Denies wheezing Physical Exam General General appearance: alert and in no apparent distress Eye Eye exam: Present normal appearance, PERRL and EOMI ENT ENT exam: Present mucous membranes moist and normal external ear exam Expanded ENT Exam External ear exam: Present normal external inspection TM/Canal exam: Bilateral TM: erythema and bulging Nose exam: Absent sinus tenderness Nasal speculum exam: Bilateral: normal Mouth exam: Present normal external inspection; Absent drooling Teeth exam: Present normal inspection Throat exam: Present tonsillar erythema and tonsillomegaly Neck Neck exam: Present normal inspection, full ROM and trachea midline; Absent tenderness, lymphadenopathy or thyromegaly Chest Chest inspection: Present normal inspection and symmetric chest wall rise; Absent tenderness or rash Respiratory Respiratory exam: Present normal lung sounds bilaterally; Absent respiratory distress, wheezes, stridor or accessory muscle use Cardiovascular Cardiovascular exam: Present regular rate, normal rhythm and normal heart sounds Abdominal Exam Abdominal exam: Present soft; Absent distention, tenderness, guarding, rebound or rigidity Extremities Exam Extremities exam: Present normal inspection, full ROM and normal capillary refill; Absent tenderness or calf tenderness Back Exam Back exam: Present normal inspection and full ROM; Absent tenderness Neurological Exam Neurological exam: Present alert and oriented X3 Psychiatric Psychiatric exam: Present normal affect and normal mood Skin Skin exam: Present warm, dry, intact and normal color Lymphatic Lymphatic Findings: no adenopathy Medical Decision Making Medical Records Medical records reviewed: No I reviewed the patient's medical records. Screening: Per USPSTF and CDC recommendations, given the prevalence of disease in our region, it is our hospital?s policy to screen for HIV and viral Hepatitis for all patients aged 18 and over and those with ongoing risk factors. Ujan Pablo Inquiry Pt receiving controlled substance: No Lab Data Lab results reviewed: Yes I reviewed the patient's lab results.
[2024-01-17 14:55] VITALS: BP 156/92; PULSE 87; RESP 19; TEMP 36.6; O2SAT 97; BMI 47.5
[2024-01-17 15:50] VITALS: BP 156/92; PULSE 87; RESP 19; TEMP 36.6; O2SAT 97
== END 2024-01-17 15:52 | disposition home or self-care (01) ==
PROVIDERS: Emergency Provider Nurse Practitioner Family; PCP Family Medicine
DX: J01.90 Acute sinusitis, unspecified (principal)
CPT/HCPCS: 99213; G0381

== ENCOUNTER 2024-07-26 23:21 | Emergency (ER) | payer SELFPAY ==
[2024-07-26 23:22] VITALS: BP 144/92; PULSE 122; RESP 18; TEMP 36.8; O2SAT 98; BMI 45.9
--- NOTE | 2024-07-26 23:22 | ECG_ITS ---
APPROVED REPORT Exam: Resting ECG HR:111 bpm ECG Measurements Heart Rate 111 AXES MO 192 P 70 QRSd 109 QRS 65 QT 395 T 20 QTc 461 Conclusion SINUS TACHYCARDIA NONSPECIFIC T-WAVE ABNORMALITY ABNORMAL RHYTHM ECG UNCONFIRMED REPORT Electronically signed by : SEPIDEH CONTRERAS, 07/29/2024 02:42:38
[2024-07-26 23:26] VITALS: PULSE 114; RESP 18; O2SAT 97
[2024-07-26 23:27] VITALS: PULSE 122
[2024-07-26 23:30] VITALS: BP 127/83; PULSE 110; RESP 16; O2SAT 97
--- NOTE | 2024-07-26 23:31 | XR_ITS ---
PROCEDURE INFORMATION: Exam: XR Chest Exam date and time: 07/26/2024 11:58 PM Age: 24 years old Clinical indication: Pain; Chest pressure; Additional info: Cp TECHNIQUE: Imaging protocol: Radiologic exam of the chest. Views: 1 view. COMPARISON: CR XR CHEST PORTABLE 07/03/2023 10:48 PM FINDINGS: Lungs: Low lung volumes. Mild right lower lobe opacities. Pleural spaces: No pleural effusion. No pneumothorax. Heart/Mediastinum: No cardiomegaly. Bones/joints: Unremarkable. IMPRESSION: Low lung volumes. Mild right lower lobe opacities, which may be related to bronchovascular crowding or atelectasis, although aspiration/pneumonia can not be excluded.
[2024-07-26] MEDS: ACETAMINOPHEN 500MG TAB 1000 MG PO (23:41)
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
[2024-07-26 23:51] LABS: Basophils # 0.1 K/mm3 (0-0.2); Basophils % 0.5 % (0.1-2.0); Eosinophils # 0.2 Kmm3 (0.0-0.4); Eosinophils % 1.8 % (0.1-12.0); Hematocrit 38.3 % (42.0-52.0); Hemoglobin 13.1 g/dL (14.1-18.0); Immature Granulocytes # 0.07 10^3uL; Immature Granulocytes % 0.7 %; Lymphocytes # 1.9 K/mm3 (0.7-4.5); Lymphocytes % 17.8 % (10-50); Mean Corpuscular HGB Conc 34.2 g/dL (31.8-35.4); Mean Corpuscular Hemoglobin 30.3 pg (27.0-31.2); Mean Corpuscular Volume 88.5 fl (80-94); Mean Platelet Volume 10.2 fl (7.4-10.4); Monocytes # 0.9 K/mm3 (0.1-1.0); Monocytes % 8.8 % (1.7-9.3); Neutrophils # 7.3 K/mm3 (1.8-7.8); Neutrophils % 70.4 % (37.0-80.0); Nucleated Red Blood Cells # 0 10^3/uL; Nucleated Red Blood Cells % 0 %; Platelet Count 249 K/mm3 (142-424); Red Blood Count 4.33 M/mm3 (4.60-6.20); Red Cell Distribution Width 12.3 % (11.5-17.5); Red Cell Distribution Width-SD 40.3 fL; White Blood Count 10.4 K/mm3 (4.8-10.8)
[2024-07-26 23:53] LABS: Alanine Aminotransferase 47 U/L (12-78); Albumin Level 4.3 g/dl (3.5-5.0); Albumin/Globulin Ratio 1.2 (1.1-1.8); Alkaline Phosphatase 88 U/L (38-126); Anion Gap 13.6 mEq/L (5-15); Aspartate Amino Transferase 34 U/L (17-59); Bilirubin,Total 0.5 mg/dl (0.2-1.3); Blood Urea Nitrogen 16 mg/dl (9-20); Calcium 9.5 mg/dl (8.4-10.2); Carbon Dioxide 28 mmol/L (22.0-30.0); Chloride 99 mmol/L (98-107); Creatinine Clearance Estimated 131 mL/min (50-200); Estimated Glomerular Filt Rate 104 ml/min (>60); GFR (African American) 125 ML/MIN (>60); Globulin 3.5 g/dL (1.3-3.2); Glucose 144 mg/dl (74-100); Potassium 3.6 mmoL/L (3.5-5.1); Sodium 137 mmol/L (136-145); Total Protein,Serum 7.8 g/dl (6.3-8.2)
[2024-07-26 23:59] LABS: D-Dimer 0.45 ug/mL (0.0-0.5)
[2024-07-27] VITALS: BP 126/88; PULSE 88; RESP 26; O2SAT 98
[2024-07-27 00:09] LABS: Troponin I < 0.01 ng/ml (0.00-0.034)
[2024-07-27 00:14] VITALS: BP 138/91; PULSE 94; RESP 15; TEMP 36.6; O2SAT 98
== END 2024-07-27 00:15 | disposition home or self-care (01) ==
PROVIDERS: Emergency Provider Emergency Medicine; PCP Family Medicine
DX: R07.9 Chest pain, unspecified (principal)
CPT/HCPCS: 71045; 80053; 84484; 85025; 85378; 93005; 99285

== ENCOUNTER 2024-11-17 10:31 | Emergency (ER) | payer SELFPAY ==
[2024-11-17 10:39] VITALS: BP 156/99; PULSE 93; RESP 16; TEMP 36.8; O2SAT 98; BMI 46.1
--- NOTE | 2024-11-17 11:06 | ED_ITS ---
Discharge Plan Disposition Patient Disposition: Home, Self-Care Condition: Good Prescriptions Prescriptions: No Action cetirizine 10 mg Tablet 10 mg PO DAILY Referrals Follow up/Referrals: Boaz Ring DO [Staff Physician, Orthopedics] - See instructions Lavell Anaya MD [Primary Care Provider, Medical] - See instructions Activity Restrictions/Add. Instructions Additional Instructions/Restrictions: You need to get a stax splint at wear it at all times until you follow-up. DO NOT TAKE IT OFF. Call Dr. Mike't office to schedule an appointment. Clinical Impressions Clinical Impression: Mallet deformity of index finger Print Language Print Language: Chinese Discharge ED Provider: Shana Ireland General Adult HPI General Chief complaint: Extremity Injury, Upper Stated complaint: A/O 10/ smash right pointer finger. Time Seen by Provider: 11/17/24 10:54 Mode of Arrival: Ambulatory Source of Information: Patient Description of Symptoms (Recalled from ER Triage Doc. by RN): pt reports while he was working his R index finger was crushed. pt was seen at a [facility] in [place] and told that his finger was dislocated. Pt presents with a finger splint. pt states the majority of his pain is in his PIP joint and he is unable to bend it. pts pain is 6/10, he took 400mg advil around 0600 without relief. History of Present Illness HPI narrative: Patient is an otherwise healthy 24-year-old male who presented to the emergency department as a right index finger injury. Patient was seen at an urgent care center on where it was reportedly dislocated and it was reduced and patient was placed into a finger splint. Patient is reporting continued pain in her right finger but denies any neurologic deficits or motor deficits. Patient states that he is able to bend the finger but it snaps when he bends it. Related Data Home Medications ?Medication ?Instructions ?Recorded ?Confirmed cetirizine 10 mg tablet 10 mg PO DAILY 07/26/2407/08 Allergies Allergy/AdvReac Type Severity Reaction Status Date / Time Penicillins Allergy Verified 09/15/20 18:47 Sulfa (Sulfonamide Allergy Verified 09/15/20 18:47 Antibiotics) [facility] Disclaimer: The information contained in this section may have been updated after the patient was seen, as this information can be updated by other users. 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) Smoking Status: Current every day smoker alcohol intake: never substance use type: denies use current occupational status: student and other Travel in the last 8 weeks?: None household members: family housing: house Have you lived/traveled outside US in past 30 days?: No Contact w/someone who lives/traveled outside US past 30 days?: No Exposure to someone with infectious disease in past 14 days?: No Do you have a fever (greater than 100.4 F or 38 C)?: No Have you tested positive for COVID-19?: No Exposed to someone with COVID-19 in past 14 days?: No Do you have a sore throat?: No Do you have a cough?: No Do you have any weakness?: No Do you have any diarrhea?: No Are you experiencing any unusual bleeding?: No Do you have any muscle aches/pain?: No Do you have any abdominal pain?: No Are you experiencing loss of taste or smell?: No Other 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 Have you received the Flu Vaccine for this season: No Have you received the Pneumonia Vaccine: No ROS Obtained: Yes All systems reviewed & no additional complaints except as documented and Yes Systems reviewed as appropriate & no additional complaints except as documented Physical Exam General General appearance: alert and in no apparent distress Head Head exam: atraumatic, normocephalic and normal inspection Eye Eye exam: Present normal appearance, PERRL and EOMI; Absent scleral icterus ENT ENT exam: Present normal exam and normal external ear exam Neck Neck exam: Present normal inspection and full ROM Chest Chest inspection: Present normal inspection and symmetric chest wall rise Respiratory Respiratory exam: Present normal lung sounds bilaterally; Absent respiratory distress or wheezes Cardiovascular Cardiovascular exam: Present regular rate, normal rhythm and normal heart sounds Abdominal Exam Abdominal exam: Present soft and distention; Absent tenderness, guarding or rebound Extremities Exam Extremities exam: Present normal inspection, full ROM and other (R index finger with a mallet deformity, extensor tendon injury ) Back Exam Back exam: Present normal inspection and full ROM Neurological Exam Neurological exam: Present alert and oriented X3 Psychiatric Psychiatric exam: Present normal affect and normal mood Skin Skin exam: Present warm and dry Medical Decision Making Medical Records Medical records reviewed: Yes I reviewed the patient's medical records. Screening: Per USPSTF and CDC recommendations, given the prevalence of disease in our region, it is our hospital?s policy to screen for HIV and viral Hepatitis for all patients aged 18 and over and those with ongoing risk factors. Juan Pablo Inquiry Pt receiving controlled substance: No Vital Signs: 11/17/24 10:39 11/17/24 11:29 11/17/24 12:47 Temperature 98.3 F 98.3 F 98.3 F Temperature Source Oral Oral Pulse Rate 71 83 Pulse Rate [Left] 93 H Respiratory Rate 16 16 18 Blood Pressure 133/82 136/82 Blood Pressure [Right Arm] 156/99 H Blood Pressure Mean [Right Arm] 118 Blood Pressure Source Automatic Cuff Blood Pressure Source [Right Arm] Automatic Cuff Blood Pressure Position Sitting Blood Pressure Position [Right Arm] Sitting 02 Sat by Pulse Oximetry 98 97 100 Oxygen Delivery Method Room Air Room Air Room Air 11/17/24 12:48 Temperature 98.3 F Temperature Source Oral Pulse Rate 83 Pulse Rate [Left] Respiratory Rate 18 Blood Pressure 136/82 Blood Pressure [Right Arm] Blood Pressure Mean [Right Arm] Blood Pressure Source Automatic Cuff Blood Pressure Source [Right Arm] Blood Pressure Position Sitting Blood Pressure Position [Right Arm] 02 Sat by Pulse Oximetry Oxygen Delivery Method Room Air Orders (Tests/Meds): ORDERS Category Date Time Status Hand XR right minimum 3 views [XR hand RT min 3V] Stat Exams 11/17/24 11:13 Completed Medical Decision Narrative: Patient is an otherwise healthy 24-year-old male who presented to the emergency department with a right index finger injury. On arrival, patient was hemodynamic stable. Differential includes but not limited to: Fracture, dislocation, sprain, strain, tendon injury, among others Patient was reviewed and interpreted by myself and showed no acute fracture dislocation or other acute pathology. On my evaluation, patient had a mallet finger likely extensor tendon injury from previous dislocation. I discussed the case with orthopedics who recommended that patient get a split stax splint, and that patient need to wear it at all times until he follows up in the orthopedic clinic. Patient was otherwise discharged home in stable condition, return precautions were discussed. Critical Care Critical Care Time Critical Care Time: No
--- NOTE | 2024-11-17 11:13 | XR_ITS ---
PROCEDURE INFORMATION: Exam: XR Right Hand Exam date and time: 11/17/2024 11:09 AM Age: 24 years old Clinical indication: Pain; Hand; Right; Additional info: Right index deformity TECHNIQUE: Imaging protocol: Radiologic exam of the right hand. Views: 3 or more views. Total images: 3 COMPARISON: No relevant prior studies available. FINDINGS: Bones/joints: No evidence of acute fracture or dislocation. Soft tissues: Diffuse soft tissue swelling. IMPRESSION: 1. Diffuse soft tissue swelling. 2. No evidence of acute fracture or dislocation.
[2024-11-17 11:29] VITALS: BP 133/82; PULSE 71; RESP 16; TEMP 36.8; O2SAT 97
--- NOTE | 2024-11-17 12:45 | PC.NURSE ---
called radiology for ETA on xray read. they are looking into it.
[2024-11-17 12:47] VITALS: BP 136/82; PULSE 83; RESP 18; TEMP 36.8; O2SAT 100
[2024-11-17 12:48] VITALS: BP 136/82; PULSE 83; RESP 18; TEMP 36.8; O2SAT 100
== END 2024-11-17 12:54 | disposition home or self-care (01) ==
PROVIDERS: Emergency Provider Student in an Organized Health Care Education/Training Program; PCP Family Medicine
DX: M20.011 Mallet finger of right finger(s) (principal); M79.644 Pain in right finger(s)
CPT/HCPCS: 73130; 99283; 99284